=== PATIENT | female | born 2000 | race Caucasian/White ===

== ENCOUNTER 2022-02-22 10:42 | Emergency (ER) | payer BC ==
[~2022-02-22] VITALS: Ht 165.1 cm; Wt 54.5 kg
[2022-02-22 10:43] VITALS: TEMP 97.7
[2022-02-22 11:20] LABS: COLLECTION METHOD CLEAN CATCH
[2022-02-22 11:24] LABS: BASO % 0.5 % (0.0-2.0); EOS # 0.1 K/mm3 (0.0-0.7); EOS % 1.7 % (0.0-4.0); GRAN # 5.5 K/mm3 (1.4-6.5); GRAN % 73.8 % (42.2-75.2); HEMATOCRIT 39.2 % (35.0-45.0); HEMOGLOBIN 12.7 g/dl (12.0-15.0); LYMPH # 1.2 K/mm3 (1.2-3.4); LYMPH % 16.5 % (20.0-51.0); MEAN CELL VOLUME 89 fl (80.0-95.0); MEAN CORPUSCULAR HEMOGLOBIN 29 pg (26-32); MEAN CORPUSCULAR HGB CONC 32 g/dl (33.0-37.0); MEAN PLATELET VOLUME 10.9 fl (7.4-10.4); MONO # 0.6 K/mm3 (0.1-0.6); MONO % 7.4 % (1.7-9.3); PLATELET COUNT 221 K/mm3 (130-400); RED BLOOD COUNT 4.41 M/mm3 (4.10-5.30); REDCELL DISTRIBUTION WIDTH-CV 12.6 % (11.5-14.5)
[2022-02-22 11:40] LABS: MUCOUS Present (NOT PRESENT); PH 7 (5-8); URINE APPEARANCE Cloudy (CLEAR/HAZY); URINE BACTERIA Rare /hpf (NONE SEEN); URINE COLOR Yellow (YELLOW); URINE GLUCOSE Negative (NEGATIVE); URINE KETONE Negative (NEGATIVE); URINE NITRATE Negative (NEGATIVE); URINE PROTEIN(semi-quant) TRACE (NEGATIVE); URINE UROBILINOGEN 0.2 (NEGATIVE)
[2022-02-22 11:41] LABS: URINE BLOOD TRACE-INTACT (NEGATIVE)
[2022-02-22 11:49] LABS: ALBUMIN 4.6 gm/dL (3.5-5.0); BILIRUBIN,TOTAL 0.5 mg/dL (0.2-1.2); C-REACTIVE PROTEIN 0.02 mg/dL (0.00-0.50); CALCIUM 10.2 mg/dL (8.4-10.2); CREATININE, serum 0.77 mg/dL (0.57-1.11); POTASSIUM 3.8 mmol/L (3.5-4.5); TOTAL PROTEIN 7.3 gm/dL (6.2-8.1)
[2022-02-22 12:08] LABS: PROLACTIN 47.4 ng/mL (5.18-26.53)
[2022-02-22 13:11] VITALS: BP 133/79; PULSE 62
== END 2022-02-22 13:15 | disposition home or self-care (01) ==
LOC: COL.ER 10:42
PROVIDERS: Family Medicine
DX: R55 Syncope and collapse (principal); Z28.310 Unvaccinated for COVID-19
CPT/HCPCS: J7120